=== PATIENT | male | born 1930 | race Caucasian/White ===

== ENCOUNTER 2016-09-22 12:35 | Emergency (ER) | payer MEDICARE ==
[2016-09-22 13:17] VITALS: BP 115/58
--- NOTE | 2016-09-22 13:37 | PHYS DOC ---
Past Medical History Past Medical History: Anxiety, Depression, Diabetes-Type II, Hypertension Additional Past Medical Histor: NEUROPATHY.LOW BACK PAINKIDNEY DISEASE URINE RETENTION Past Surgical History: Other Additional Past Surgical Histo: UNKNOWN Alcohol Use: None Drug Use: None Adult General Chief Complaint Chief Complaint: LOWER EXTREMITY SWELLING [facility] HPI Patient is a 86 year old male who presents with clear/orange weeping and blisters on left lower extremity noted after dressing change for chronic lymphedema. He started compressive dressings in the past couple weeks by a wound care nurse at his assisted living facility. He states these are uncomfortable. Now that dressings are removed, he has no pain. He denies injury , fever or chills. No other discoloration from chronic lymphedema discoloration. Review of Systems Review of Systems Constitutional: Denies fever or chills [] Eyes: Denies change in visual acuity, redness, or eye pain [] HENT: Denies nasal congestion or sore throat [] Respiratory: Denies cough or shortness of breath [] Cardiovascular: No additional information not addressed in HPI [] GI: Denies abdominal pain, nausea, vomiting, bloody stools or diarrhea [] : Denies dysuria or hematuria [] Musculoskeletal: Denies back pain or joint pain [] Integument: Denies rash [] Neurologic: Denies headache, focal weakness or sensory changes [] Endocrine: Denies polyuria or polydipsia [] Allergies Allergies Allergies Coded Allergies Type Severity Reaction Last Updated Verified amoxicillin Allergy Intermediate VOMITING 09/22/16 Yes aspirin Allergy Intermediate VOMITING 09/22/16 Yes clavulanic acid Allergy Intermediate VOMITING 09/22/16 Yes Physical Exam Physical Exam Constitutional: Well developed, well nourished, no acute distress, non-toxic appearance. [] HENT: Normocephalic, atraumatic, bilateral external ears normal, oropharynx moist, nose normal. [] Eyes: PERRLA, EOMI. [] Neck: Normal range of motion, supple. [] Cardiovascular:Heart rate regular rhythm [] Lungs & Thorax: Bilateral breath sounds clear to auscultation [] Abdomen: Bowel sounds normal, soft, no tenderness. [] Skin: Warm, dry. [] Back: Normal range of motion. [] Extremities: No tenderness, ROM intact. Bilateral lower extremities with 2+ edema, diffuse red discoloration, L>R leg with small clear blisters, some serous discharge from the blisters, no warmth/crepitance/induration/fluctuance [ ] Neurologic: Alert and oriented X 3, normal motor function, normal sensory function, no focal deficits noted. [] Psychologic: Affect normal, judgement normal, mood normal. [] Current Patient Data Vital Signs Vital Signs Date Time Temp Pulse Resp B/P Pulse Ox O2 Delivery O2 Flow Rate FiO2 09/22/16 13:17 97.8 65 18 115/58 90 Room Air 97.8 Course & Med Decision Making Course & Med Decision Making Discussed he should continue wound care management. His wounds do not appear infected at this time. Return precautions given. He and son understand and agree with plan. Dragon Disclaimer Dragon Disclaimer This electronic medical record was generated, in whole or in part, using a voice recognition dictation system. Departure Departure Impression: Primary Impression: Lymphedema of both lower extremities Disposition: HOME, SELF-CARE Condition: STABLE Patient Instructions: Lymphedema Additional Instructions: The wounds do not appear infected at this time. Continue wound care. Follow-up with your primary care doctor. Return for any concerns. Vernell YU MD Sep 22, 2016 13:37
== END 2016-09-22 14:11 | disposition home or self-care (01) ==
LOC: ER 12:35
DX: I89.0 Lymphedema, not elsewhere classified (principal); I10 Essential (primary) hypertension; E11.40 Type 2 diabetes mellitus with diabetic neuropathy, unspecified; Z88.1 Allergy status to other antibiotic agents; Z88.6 Allergy status to analgesic agent
CPT/HCPCS: 99281; 99283